=== PATIENT | female | born 2000 | race Caucasian/White ===

== ENCOUNTER 2023-12-19 02:29 | Emergency (ER) | payer OTHER, BC, SELFPAY ==
[2023-12-19 02:31] VITALS: BP 113/81; PULSE 69; RESP 16; TEMP 36.6; O2SAT 97
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
[2023-12-19 04:40] LABS: HCG Qualitative Urine. Negative (Negative)
[2023-12-19 05:28] VITALS: BP 112/74; PULSE 68; RESP 16; O2SAT 98
== END 2023-12-19 05:27 | disposition home or self-care (01) ==
PROVIDERS: Emergency Provider Emergency Medicine; PCP Registered Nurse
DX: T76.21XA Adult sexual abuse, suspected, initial encounter (principal)
CPT/HCPCS: 81025; 99283

== ENCOUNTER → 2024-05-30 09:53 | Outpatient (BNVA) | payer OTHER, SELFPAY | PROVIDERS: PCP Registered Nurse; Visit Provider Nurse Practitioner | DX: Z20.2 Contact with and (suspected) exposure to infections with a predominantly sexual mode of transmission (principal); R82.90 Unspecified abnormal findings in urine | CPT/HCPCS: 81000; 87491; 87591; 87661 ==